=== PATIENT | male | born 1955 | race Two or more races ===

== ENCOUNTER 2025-03-08 17:00 | Emergency (ER) | payer OTHER ==
[~2025-03-08] VITALS: Ht 170.2 cm; Wt 77.6 kg
[2025-03-08 17:30] VITALS: BP 120/70; O2SAT 99
[2025-03-08] MEDS ORDERED: KETOROLAC TROMETHAMINE 30 MG VIAL IM STA (17:47)
[2025-03-08] MEDS ORDERED: 0.9 % SODIUM CHLORIDE 1,000 ML IV STA (17:48)
[2025-03-08] MEDS ORDERED: KETOROLAC TROMETHAMINE 30 MG VIAL ONE (20:12)
[2025-03-08 20:27] LABS: BASO % 1.4 % (0.1-1.2); EOS # 0.32 (0.04-0.54); EOS % 3.6 % (0.7-7.0); LYMPH # 3.26 (1.18-3.74); LYMPH % 37.2 % (19.3-53.1); MEAN PLATELET VOLUME 9.80 fl (9.4-12.4); MONO # 1.03 (0.24-0.82); MONO % 11.7 % (4.7-12.5); NEUT # 4.00 (1.56-6.13); NEUT % 45.6 % (34.0-71.1); RED CELL DISTRIBUTION WIDTH 12.5 % (11.6-14.4)
[2025-03-08 21:04] LABS: BUN CREA RATIO 13.0 (7.0-25.0); CREATININE SERUM 1.23 mg/dL (0.70-1.30); GFR 58.69; GLUCOSE FASTING 86.0 mg/dL (65-100); OSMOLALITY SERUM 285.0 MOSM/KG (275-295)
[2025-03-08] MEDS ORDERED: METAXALONE800 MG PO (21:39)
[2025-03-08] MEDS ORDERED: DICLOFENAC POTA50 MG PO (21:39)
[2025-03-08 22:25] LABS: URINE APPEARANCE Clear; URINE BILIRRUBIN Negative (NEGATIVE); URINE BLOOD Large; URINE COLOR Yellow; URINE GLUCOSE Negative (NEGATIVE); URINE KETONE 15 (NEGATIVE); URINE LEUKOCYTE Negative; URINE NITRATE Negative; URINE PROTEIN Trace (NEGATIVE); URINE UROBILINOGEN 1.0 E.U./dl
[2025-03-08 22:29] LABS: URINE BACTERIA 20.3 uL (0.0-1933); URINE EPITHELIAL CELLS 1.6 uL (0.0-38.8); URINE RBC 411.8 uL (0.0-20.8); URINE WBC 4.3 uL (0.0-23.2)
[2025-03-08 22:39] LABS: URINE CAST 0.29 uL (0.0-1.40)
== END 2025-03-08 23:11 | disposition home or self-care (01) ==
LOC: ER 17:01
PROVIDERS: General Practice
DX: M54.9 Dorsalgia, unspecified (principal); R10.9 Unspecified abdominal pain
CPT/HCPCS: 36415; 74176; 96365; 96366; 96372; 99284; J1885; J7030